=== PATIENT | male | born 1985 | race African-American/Black ===

== ENCOUNTER 2016-09-30 17:40 | Inpatient (IN) | payer OTHER ==
[~2016-09-30] VITALS: Ht 170.2 cm; Wt 75.4 kg
[2016-09-30 18:06] VITALS: BP 131/74; PULSE 50; TEMP 98.2
[2016-09-30 18:31] LABS: BASO % 0.3 % (0.0-2.0); EOS # 0.1 (0.0-0.7); EOS % 1.1 % (0-4.0); GRAN # 6.3 (1.4-6.5); GRAN % 65.9 % (42.2-75.2); HEMATOCRIT 41.2 % (42.0-52.0); HEMOGLOBIN 13.7 g/dl (13.5-18.0); LYMPH # 2.4 (1.2-3.4); MEAN CELL VOLUME 82 fl (80.0-100.0); MEAN CORPUSCULAR HEMOGLOBIN 27 pg (27.0-31.0); MEAN CORPUSCULAR HGB CONC 33 g/dl (33.0-37.0); MEAN PLATELET VOLUME 9.7 fl (7.4-10.4); MONO # 0.7 (0.1-0.6); MONO % 7.4 % (1.7-9.3); PLATELET COUNT 462 K/mm3 (130-400); RED BLOOD COUNT 5.04 M/mm3 (4.20-5.60); REDCELL DISTRIBUTION WIDTH-CV 16.1 % (11.5-14.5); WHITE BLOOD COUNT 9.6 K/mm3 (4.8-10.8)
[2016-09-30 18:32] LABS: INR 1.2 (0.8-3.0); PROTHROMBIN TIME 12.8 SECONDS (9.7-12.8)
[2016-09-30 18:34] LABS: PARTIAL THROMBOPLASTIN TIME 30.9 SECONDS (26.0-37.0)
[2016-09-30 18:40] LABS: ADJUSTED CALCIUM 8.7 mg/dL (8.4-10.2); ALBUMIN 3.8 gm/dL (3.5-5.0); BILIRUBIN,TOTAL 0.7 mg/dL (0.0-1.0); CALCIUM 8.5 mg/dL (8.4-10.2); CREATININE, serum 1.15 mg/dL (0.66-1.25); POTASSIUM 3.8 mmol/L (3.4-5.0); TOTAL PROTEIN 6.3 gm/dL (6.4-8.2)
[2016-09-30 18:51] LABS: TROPONIN-I 2.2 ng/mL (0.000-0.034)
[2016-09-30 20:00] VITALS: BP 123/75; PULSE 50; TEMP 98.3
[2016-09-30 23:34] VITALS: BP 134/78; PULSE 96; TEMP 98.4
[2016-10-01] VITALS (292 sets, daily range): BP systolic 113–137; BP diastolic 60–93; PULSE 42–70; TEMP 97.9–98.4; O2SAT 91–100
[2016-10-01 07:46] LABS: HEMATOCRIT 41.9 % (42.0-52.0); HEMOGLOBIN 13.9 g/dl (13.5-18.0); MEAN CELL VOLUME 83 fl (80.0-100.0); MEAN CORPUSCULAR HEMOGLOBIN 28 pg (27.0-31.0); MEAN CORPUSCULAR HGB CONC 33 g/dl (33.0-37.0); MEAN PLATELET VOLUME 10.1 fl (7.4-10.4); PLATELET COUNT 462 K/mm3 (130-400); RED BLOOD COUNT 5.05 M/mm3 (4.20-5.60); REDCELL DISTRIBUTION WIDTH-CV 16.5 % (11.5-14.5); WHITE BLOOD COUNT 7.3 K/mm3 (4.8-10.8)
[2016-10-01 07:49] LABS: INR 1.1 (0.8-3.0); PROTHROMBIN TIME 12.6 SECONDS (9.7-12.8)
[2016-10-01 07:57] LABS: ANION GAP 9 mmol/L (7-16); BLOOD UREA NITROGEN 13 mg/dL (9-20); CALCIUM 8.7 mg/dL (8.4-10.2); CARBON DIOXIDE 27 mmol/L (22-30); CHLORIDE 101 mmol/L (98-107); CREATININE, serum 1.15 mg/dL (0.66-1.25); GLUCOSE 89 mg/dL (74-106); POTASSIUM 4.1 mmol/L (3.4-5.0); SODIUM 137 mmol/L (137-145)
[2016-10-01 10:01] LABS: C-REACTIVE PROTEIN < 0.5 mg/dL (0.0-0.9)
[2016-10-01 22:04] LABS: PH 7 (5-8); SQUAMOUS EPITHELIAL None Seen /hpf; URINE APPEARANCE Clear; URINE BACTERIA None Seen /hpf; URINE BILIRUBIN Negative (NEGATIVE); URINE BLOOD Negative (NEGATIVE); URINE COLOR Straw; URINE GLUCOSE Negative (NEGATIVE); URINE KETONE Negative (NEGATIVE); URINE RBC 0-2 /hpf; URINE UROBILINOGEN Negative (NEGATIVE); URINE WBC 0-2 /hpf
[2016-10-01 22:21] LABS: AMPHETAMINE URINE NEGATIVE; BARBITURATES URINE NEGATIVE; BENZODIAZEPINES URINE NEGATIVE; BUPRENORPHINE URINE NEGATIVE; METHADONE URINE NEGATIVE; OPIATES URINE POSITIVE; OXYCODONE URINE NEGATIVE; PHENCYCLIDINE URINE NEGATIVE; PROPOXYPHENE URINE NEGATIVE; THC CANNABINOIDS URINE NEGATIVE
[2016-10-02] VITALS (591 sets, daily range): BP systolic 110–130; BP diastolic 68–83; PULSE 51–55; TEMP 97.6–98; O2SAT 90–100
[2016-10-02 07:06] LABS: HEMATOCRIT 45.8 % (42.0-52.0); HEMOGLOBIN 14.9 g/dl (13.5-18.0); MEAN CELL VOLUME 83 fl (80.0-100.0); MEAN CORPUSCULAR HEMOGLOBIN 27 pg (27.0-31.0); MEAN CORPUSCULAR HGB CONC 33 g/dl (33.0-37.0); MEAN PLATELET VOLUME 9.8 fl (7.4-10.4); PLATELET COUNT 500 K/mm3 (130-400); RED BLOOD COUNT 5.51 M/mm3 (4.20-5.60); REDCELL DISTRIBUTION WIDTH-CV 16.7 % (11.5-14.5); WHITE BLOOD COUNT 7.2 K/mm3 (4.8-10.8)
[2016-10-02 07:19] LABS: CALCIUM 8.9 mg/dL (8.4-10.2); CREATININE, serum 1.2 mg/dL (0.66-1.25); POTASSIUM 3.9 mmol/L (3.4-5.0)
[2016-10-02] MEDS ORDERED: LIPITOR 40MG TA40 MG PO (11:27)
[2016-10-02] MEDS ORDERED: BRILINTA90 MG PO (11:27)
[2016-10-02] MEDS ORDERED: NITROSTAT0.4 MG/TAB SL (11:29)
[2016-10-02] MEDS ORDERED: TOPROL XL 25MG25 MG PO (11:30)
[2016-10-02] MEDS ORDERED: ASPIRIN 81M81 MG/TA2 PO (11:30)
== END 2016-10-02 13:09 | disposition home or self-care (01) | DRG 247 ==
LOC: MEDICAL 17:40 → ICU 18:11 → MEDICAL 18:11 → ICU 10-01 10:31 → IMCU 10-01 18:46
PROVIDERS: Family Medicine; Internal Medicine; Internal Medicine Cardiovascular Disease
PROC: 027034Z Dilation of Coronary Artery, One Artery with Drug-eluting Intraluminal Device, Percutaneous Approach (ICD-10-PCS; principal; 2016-10-01)
PROC: 02C03ZZ Extirpation of Matter from Coronary Artery, One Artery, Percutaneous Approach (ICD-10-PCS; 2016-10-01)
PROC: B2111ZZ Fluoroscopy of Multiple Coronary Arteries using Low Osmolar Contrast (ICD-10-PCS; 2016-10-01)
DX: I21.4 Non-ST elevation (NSTEMI) myocardial infarction (principal)
CPT/HCPCS: OP; 99222-AI; 99232-AI; 99239; C1725; C1757; C1760; C1769; C1874; C1887; C9600; J0583; J1644; J2250; J2270; J3010; J7030; Q9967

== ENCOUNTER 2017-01-03 15:04 | Outpatient (RCR) | payer OTHER ==
[~2017-01-03 15:04] MED LIST: ASPIRIN 81M81 MG/TA2 PO; BRILINTA90 MG PO; LIPITOR 40MG TA40 MG PO; NITROSTAT0.4 MG/TAB SL; TOPROL XL 25MG25 MG PO
== END 2017-02-09 | disposition home or self-care (01) ==
LOC: COL.CR
DX: Z48.812 Encounter for surgical aftercare following surgery on the circulatory system (principal); Z95.5 Presence of coronary angioplasty implant and graft; Z51.89 Encounter for other specified aftercare

== ENCOUNTER 2018-08-10 13:05 | Observation (INO) | payer OTHER ==
[2018-08-10] VITALS (331 sets, daily range): BP systolic 89–122; BP diastolic 59–84; PULSE 43–73; TEMP 97.8–98.6; O2SAT 89–100
[~2018-08-10] VITALS: Ht 170.2 cm; Wt 71.8 kg
--- NOTE | 2018-08-10 13:05 | NUR ---
Patient admitted to ICU#5 via stretcher from [facility]. Assessment complete, patient pain free at this time. Call light within reach.
--- NOTE | 2018-08-10 14:34 | NUR ---
Patient taken to skill labor via bed.
--- NOTE | 2018-08-10 14:48 | NUR ---
SEE MERGE REPORT FOR MEDICATION ADMINISTRATION TIMES WELL INTRA/POST SEDATION ASSESSMENTS.
--- NOTE | 2018-08-10 15:25 | NUR ---
Report received from EBONY Simmons (mushroom laborer.)
--- NOTE | 2018-08-10 15:40 | NUR ---
Patient back from laboratory animal caretaker, right femoral groin site, soft without hematoma, dressing clean, dry and intact, at bedside. Call light within reach.
--- NOTE | 2018-08-10 16:23 | NUR ---
Care handed over to EBONY Bacon.
--- NOTE | 2018-08-10 16:25 | NUR ---
Report received from EBONY Smyth.
--- NOTE | 2018-08-10 19:50 | NUR ---
Report given to EBONY Reyes
[2018-08-11] VITALS (365 sets, daily range): BP systolic 104–119; BP diastolic 60–86; PULSE 48–61; TEMP 98; O2SAT 76–100
[2018-08-11 05:24] LABS: HEMATOCRIT 45.5 % (42.0-52.0); HEMOGLOBIN 14.5 g/dl (13.5-18.0); MEAN CELL VOLUME 84 fl (80.0-100.0); MEAN CORPUSCULAR HEMOGLOBIN 27 pg (27.0-31.0); MEAN CORPUSCULAR HGB CONC 32 g/dl (33.0-37.0); MEAN PLATELET VOLUME 9.5 fl (7.4-10.4); PLATELET COUNT 572 K/mm3 (130-400); RED BLOOD COUNT 5.43 M/mm3 (4.20-5.60); REDCELL DISTRIBUTION WIDTH-CV 16.3 % (11.5-14.5)
[2018-08-11 05:41] LABS: CALCIUM 9.1 mg/dL (8.4-10.2); CREATININE, serum 1.31 (0.66-1.25); POTASSIUM 4.1 mmol/L (3.4-5.0)
--- NOTE | 2018-08-11 07:30 | NUR ---
Report recieved from EBONY Reyes. Patient resting in bed and denies needs at this time. Right femoral site CDI and without complication. Care assumed.
[2018-08-11 08:46] LABS: CHOLESTEROL RISK RATIO 2.7
--- NOTE | 2018-08-11 09:10 | NUR ---
Dr. Portillo rounds at this time. Orders as entered CPOE.
--- NOTE | 2018-08-11 10:39 | NUR ---
First visit from the commercial real estate broker. No needs right now.
--- NOTE | 2018-08-11 12:30 | NUR ---
Dr. Rick rounds on patient at this time. Discharge orders as entered CPOE.
[2018-08-11] MEDS ORDERED: EFFIENT10 MG PO (12:31)
[2018-08-11] MEDS ORDERED: TYLENOL 500MG500 MG PO (12:32)
--- NOTE | 2018-08-11 12:57 | NUR ---
SW met with patient to disucss discharge planning. Patient will discharge home today. 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 Patient also obtains medications on . Patient does not use any medical equipment or home health services. Patient does not have a DPOA and is not interested in completing one at this time. SW does not anticipate any discharge needs.
--- NOTE | 2018-08-11 13:04 | NUR ---
Patient provided DC education and verbalizes understanding. INT IV removed and patient escorted to POC with all belongings sent with.
== END 2018-08-11 13:04 | disposition home or self-care (01) ==
LOC: ICU 13:05 → IMCU 13:32 → ICU 08-11 13:04
PROVIDERS: Physician Assistant; ADMIT Hospitalist
DX: I25.10 Atherosclerotic heart disease of native coronary artery without angina pectoris (principal); I25.2 Old myocardial infarction; D47.3 Essential (hemorrhagic) thrombocythemia; N17.9 Acute kidney failure, unspecified; Z79.82 Long term (current) use of aspirin; I08.1 Rheumatic disorders of both mitral and tricuspid valves
CPT/HCPCS: C1760; C1769; C1887; C1894; G0378; G0379; J0153; J1644; J2250; J3010; Q9967

== ENCOUNTER → 2018-08-14 | Outpatient (CLI) | payer OTHER ==
[~2018-08-14] MED LIST changes: +EFFIENT10 MG PO; +TYLENOL 500MG500 MG PO
[2018-08-14 10:46] LABS: HEMOGLOBIN 15.6 g/dl (13.5-18.0); MEAN CELL VOLUME 85 fl (80.0-100.0); MEAN CORPUSCULAR HEMOGLOBIN 28 pg (27.0-31.0); MEAN CORPUSCULAR HGB CONC 33 g/dl (33.0-37.0); MEAN PLATELET VOLUME 9.6 fl (7.4-10.4); PLATELET COUNT 640 K/mm3 (130-400); RED BLOOD COUNT 5.65 M/mm3 (4.20-5.60); REDCELL DISTRIBUTION WIDTH-CV 16.1 % (11.5-14.5)
[2018-08-14 11:00] LABS: CALCIUM 9.6 mg/dL (8.4-10.2); CREATININE, serum 1.21 (0.66-1.25); POTASSIUM 4.8 mmol/L (3.4-5.0)
== END ==
LOC: COL.LAB 10:20
PROVIDERS: Hospitalist
DX: N17.9 Acute kidney failure, unspecified (principal); D47.3 Essential (hemorrhagic) thrombocythemia

== ENCOUNTER → 2019-02-05 | Outpatient (CLI) | payer OTHER ==
[~2019-02-05] MED LIST changes: +CEPHALEXIN500 M1 PO; +PRIL40 PO
== END ==
LOC: COL.CARD 13:00
DX: R55 Syncope and collapse (principal)

== ENCOUNTER 2019-12-27 09:53 | Day surgery (SDC) | payer OTHER ==
[~2019-12-27] VITALS: Ht 170.2 cm; Wt 74.3 kg
[2019-12-27] VITALS (10 sets, daily range): BP systolic 98–125; BP diastolic 56–81; PULSE 42–53; TEMP 98.7
[2019-12-27] MEDS ORDERED: PRILOSEC 20MG20 MG PO (10:17)
[2019-12-27] MEDS ORDERED: NAMENDA5 MG PO (10:19)
[2019-12-27] MEDS ORDERED: SIKLOS100 MG PO (10:19)
[2019-12-27 10:47] LABS: CALCIUM 9.4 mg/dL (8.4-10.2); CREATININE, serum 1.08 (0.66-1.25); POTASSIUM 4.1 mmol/L (3.4-5.0)
[2019-12-27 10:48] LABS: HEMATOCRIT 47.9 % (42.0-52.0); HEMOGLOBIN 15.3 g/dl (13.5-18.0); INR 1.1 (0.8-3.0); MEAN CELL VOLUME 82 fl (80.0-100.0); MEAN CORPUSCULAR HEMOGLOBIN 26 pg (27.0-31.0); MEAN CORPUSCULAR HGB CONC 32 g/dl (33.0-37.0); MEAN PLATELET VOLUME 9.9 fl (7.4-10.4); PLATELET COUNT 560 K/mm3 (130-400); PROTHROMBIN TIME 11.9 SECONDS (9.7-12.8); RED BLOOD COUNT 5.83 M/mm3 (4.20-5.60); REDCELL DISTRIBUTION WIDTH-CV 16.8 % (11.5-14.5)
--- NOTE | 2019-12-27 12:17 | NUR ---
Initial visit; Patient requested prayer prior to his "Procedure" with Dr. Mijares. Elect Equip Maint Eng welcomed patient and offered comfort and prayer, patient appeared comforted.
--- NOTE | 2019-12-27 12:56 | NUR ---
SEE MERGE DOCUMENTATION FOR MEDICATION ADMINISTRATION TIMES AND INTRA/POST PROCEDURE SEDATION ASSESSMENTS. RIGHT HAND BARBEAU TEST POSITIVE.
--- NOTE | 2019-12-27 16:53 | NUR ---
Air was removed from TR band in 2ml increments starting at 1540. No bleeding from radial puncture site with deflation of band. Site was dressed with 2x2 and bandaid. INT removed with catheter intact, and bleeding controlled at site. DC instructions have been reviewed with pt. He is awaiting arrival of his ride home. When ride arrives, he will be assisted to exit by wheelchair.
--- NOTE | 2019-12-27 17:10 | NUR ---
Pt escorted out to waiting room.
== END 2019-12-27 17:10 ==
LOC: COL.CAR
PROVIDERS: Internal Medicine Cardiovascular Disease
DX: I25.10 Atherosclerotic heart disease of native coronary artery without angina pectoris (principal); R07.89 Other chest pain; Z20.828 Contact with and (suspected) exposure to other viral communicable diseases; Z95.5 Presence of coronary angioplasty implant and graft; Z79.82 Long term (current) use of aspirin; Z79.899 Other long term (current) drug therapy; I05.9 Rheumatic mitral valve disease, unspecified; Z79.02 Long term (current) use of antithrombotics/antiplatelets; Z95.818 Presence of other cardiac implants and grafts
CPT/HCPCS: J1644; J2250; J3010; Q9967